=== PATIENT | female | born 1945 | race Caucasian/White ===

== ENCOUNTER 2017-04-25 12:40 | Emergency (ER) | payer MEDICARE, OTHER ==
[~2017-04-25] VITALS: Ht 172.7 cm; Wt 95.3 kg
[2017-04-25 12:44] VITALS: BP 114/70
[2017-04-25] MEDS ORDERED: METHYLNALTREXONE 12 MG/0.6 ML SQ ONE (14:00)
== END 2017-04-25 16:39 | disposition home or self-care (01) ==
LOC: ED 13:29
DX: K59.00 Constipation, unspecified (principal); R33.9 Retention of urine, unspecified; I10 Essential (primary) hypertension; E78.00 Pure hypercholesterolemia, unspecified; F32.9 Major depressive disorder, single episode, unspecified; M19.90 Unspecified osteoarthritis, unspecified site; G62.9 Polyneuropathy, unspecified
CPT/HCPCS: 72148; 74000; 96372